=== PATIENT | male | born 1980 | race Asian ===

== ENCOUNTER 2018-12-23 19:50 | Emergency (ER) | payer OTHER ==
[~2018-12-23] VITALS: Ht 170.2 cm; Wt 74.8 kg
[2018-12-23 19:54] VITALS: Ht 170.2 cm; Wt 74.8 kg
[2018-12-23 21:58] LABS: BASOPHIL % 0.4 % (0-2); PLATELET COUNT 224 x10^3mcL (130-400); RED CELL DISTRIBUTION WIDTH 12.8 % (11.5-14.5)
[2018-12-23 22:09] LABS: C REACTIVE PROTEIN 0.7 mg/dL (<=0.9); URIC ACID 5.7 mg/dL (3.5-7.2)
[2018-12-23 22:46] VITALS: BP 134/90
== END 2018-12-23 22:46 | disposition home or self-care (01) ==
LOC: ED 19:50
PROVIDERS: Emergency Medicine
DX: I89.0 Lymphedema, not elsewhere classified (principal); Z88.6 Allergy status to analgesic agent
CPT/HCPCS: 36415; 82962